=== PATIENT | male | born 1965 | race African-American/Black ===

== ENCOUNTER 2016-05-28 12:56 | Emergency (ER) | payer OTHER ==
[~2016-05-28] VITALS: Ht 177.8 cm; Wt 79.4 kg
[~2016-05-28 12:56] MED LIST: CLIN300C86 PO; HYDR-971 PO
[2016-05-28 12:58] VITALS: BP 128/74
[2016-05-28] MEDS ORDERED: HYDR-971 PO (14:56)
--- NOTE | 2016-05-28 14:56 | PHYS DOC ---
Past Medical History Past Medical History: Diverticulosis, Other Additional Past Medical Histor: COLON POLYPS Past Surgical History: Other Additional Past Surgical Histo: COLON RESECTION Additional Information: 1 ppd Alcohol Use: Heavy Additional Information: 6 pack of beer daily Drug Use: Marijuana Adult General Chief Complaint Chief Complaint: LOWER EXT PAIN HPI HPI Patient is a 50 year old male who presents with right calf pain that started yesterday while playing football with his grandkids. He states that he felt a pop in the calf. He is able to walk on the heel of his foot but has intense pain with pressure on the balls of the foot. He does not have a PCP. Review of Systems Review of Systems Constitutional: Denies fever or chills. [] Musculoskeletal: Denies back pain or joint pain. Reports right calf pain without swelling. Integument: Denies rash or skin lesions. [] Neurologic: Denies focal weakness or sensory changes. [] Allergies Allergies Allergies Coded Allergies Type Severity Reaction Last Updated Verified No Known Drug Allergies 03/09/13 No Physical Exam Physical Exam Constitutional: Well developed, well nourished, no acute distress, non-toxic appearance. [] HENT: Normocephalic, atraumatic, oropharynx moist. [] Eyes: PERRLA, EOMI, conjunctiva normal, no discharge. [] Skin: Warm, dry, no erythema, no rash. [] Extremities: Medial right gastrocnemius tenderness, ROM intact, no edema. Distal pulses equal bilaterally. The patient is able to plantar and dorsiflex the right foot without difficulty. There is no lower extremity edema. There are no external signs of trauma. 2+ pedal pulses. Neurovascularly intact distally. Neurologic: Alert and oriented X 3, normal motor function, normal sensory function, no focal deficits noted. [] Psychologic: Affect normal, judgement normal, mood normal. [] Current Patient Data Vital Signs Vital Signs Date Time Temp Pulse Resp B/P Pulse Ox O2 Delivery O2 Flow Rate FiO2 05/28/16 12:58 97.4 74 18 128/74 98 Room Air 97.4 EKG EKG [] Radiology/Procedures Radiology/Procedures [] Course & Med Decision Making Course & Med Decision Making Pertinent Labs and Imaging studies reviewed. (See chart for details) Patient presents with right calf pain after injury. On exam, he is neurovascularly intact without evidence of compartment syndrome. He appears to have a tear of the muscle belly of the knee medial gastrocnemius. He is given an [place] wrap and crutches for assistance with ambulation. He is instructed to rest and not perform any strenuous activities. He is discharged home with prescription for [place]. He is given contact information for orthopedics. He is also given a work excuse note. Return precautions were discussed. He verbalizes understanding and agrees with plan. Dragon Disclaimer Dragon Disclaimer This electronic medical record was generated, in whole or in part, using a voice recognition dictation system. Departure Departure Impression: Primary Impression: Gastrocnemius muscle strain Disposition: HOME, SELF-CARE Condition: STABLE Referrals: MESERET CHANEY MD Patient Instructions: Muscle Tear Additional Instructions: You appear to have a tear of the gastrocnemius muscle in the calf. It is likely a partial tear. Please wear the provided [place] wrap to help with pain and to decrease swelling. You may use the provided crutches to help decrease weightbearing on the affected leg. You may bear weight as tolerated. Please avoid strenuous activities that will further strain the injured muscle. Please take the prescribed pain medication as directed. Do not drive or operate heavy machinery while taking pain medication. Please follow-up with the orthopedic doctor listed below if your pain continues. Return to the emergency department if you have any new or concerning symptoms. Scripts Hydrocodone/Apap 5-325 ([place] 5-325 Tablet)1 Each Tablet1 Tab PO PRN Q6HRS PRN PAIN #20 TAB Prov:KERA CASAREZ 05/28/16 Problem Qualifiers Primary Impression: Gastrocnemius muscle strain Encounter type: initial encounter Laterality: right Qualified Code: S86.111A - Strain of other muscle(s) and tendon(s) of posterior muscle group at lower leg level, right leg, initial encounter KERA CASAREZ May 28, 2016 14:56
== END 2016-05-28 15:04 | disposition home or self-care (01) ==
LOC: ER 12:56
DX: S86.111A Strain of other muscle(s) and tendon(s) of posterior muscle group at lower leg level, right leg, initial encounter (principal); F17.200 Nicotine dependence, unspecified, uncomplicated; F12.10 Cannabis abuse, uncomplicated; X50.9XXA Other and unspecified overexertion or strenuous movements or postures, initial encounter; Y93.61 Activity, american tackle football; Y99.8 Other external cause status; Y92.89 Other specified places as the place of occurrence of the external cause
CPT/HCPCS: 99283

== ENCOUNTER 2017-06-09 13:40 | Emergency (ER) | payer OTHER ==
[2017-06-09] MEDS: FLUORESCEIN OPHTH TEST STRIP. OS (15:30)
[2017-06-09] MEDS: TETRACAINE 0.5% OPHTH SOLUTION 4ML BOTTLE. OS (15:30)
== END 2017-06-09 16:20 | disposition home or self-care (01) ==
LOC: ER 16:20
DX: H57.11 Ocular pain, right eye (principal)
CPT/HCPCS: 99283